=== PATIENT | male | born 1970 | race Caucasian/White ===

== ENCOUNTER 2019-03-16 10:42 | Emergency (ER) | payer SELFPAY ==
[~2019-03-16] VITALS: Ht 91.4 cm; Wt 40.8 kg
--- NOTE | 2019-03-16 10:42 | NUR ---
Patient BIBA BLS, transferred to bed 9. RN evaluating patient at bedside.
[2019-03-16 10:47] VITALS: BP 129/68
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
--- NOTE | 2019-03-16 11:00 | NUR ---
Patient being evaluated by physician at bedside.
[2019-03-16] MEDS ORDERED: NACL 0.9% 1,000 ML IV ONE (11:04)
[2019-03-16] MEDS ORDERED: MULTIVITAMIN-12 10 ML, THIAMINE 100 MG, MAGNESIUM SULFATE 50% 2,000 MG, FOLIC ACID 5 MG... IV ONE ×5 (11:04)
[2019-03-16] MEDS ORDERED: diphenhydrAMINE 50 MG/ML VIAL IVP ONE (11:05)
[2019-03-16] MEDS ORDERED: FAMOTIDINE 20 MG/2 ML VIAL IVP ONE (11:05)
[2019-03-16 11:55] LABS: APPEARANCE,URINE CLEAR (CLEAR); BILIRUBIN,URINE NEGATIVE (NEGATIVE); BLOOD, URINE NEGATIVE (NEGATIVE); COLOR,URINE YELLOW (YELLOW); LEUKOCYTE ESTERASE ,URINE NEGATIVE (NEGATIVE); NITRITE, URINE NEGATIVE (NEGATIVE); UGLUCOSE NEGATIVE (NEGATIVE)
[2019-03-16 12:02] LABS: BARBITURATE, URINE NEG. ng/ml (NEG <=200); BENZODIAZEPINE, URINE POS. ng/mL (NEG <=200); CANNABINOID, URINE NEG. ng/mL (NEG <=50); COCAINE, URINE NEG. ng/mL (NEG <=300); OPIATE, URINE NEG. ng/mL (NEG <=2000); PHENCYCLIDINE SCREEN,URINE NEG. ng/mL (NEG <=25)
[2019-03-16 12:02] LABS: ANION GAP 11.6 (8-16); CARBON DIOXIDE 28.4 mmol/L (21-32); CREATININE 0.8 mg/dL (0.7-1.3); EOSINOPHILS # (AUTO) 0.1 K/uL (0-0.4); EOSINOPHILS % (AUTO) 2.4 % (0.0-4.0); LYMPHOCYTES # (AUTO) 2.6 K/uL (2.0-11.5); NEUTROPHILS # (AUTO) 2.6 K/uL (1.8-7.7); NEUTROPHILS % (AUTO) 43.8 % (42.2-75.2)
[2019-03-16 12:07] LABS: ALBUMIN 3.4 g/dL (3.4-5.0); TOTAL BILIRUBIN 0.2 mg/dL (0.0-1.0)
[2019-03-16 12:09] LABS: BASOPHILS % (AUTO) 0.8 % (0.0-2.0); HEMATOCRIT 50.3 % (36-52); HEMOGLOBIN 16.9 g/dL (12.0-18.0); LYMPHOCYTES % (AUTO) 43.9 % (20.5-51.1); MEAN CORPUSCULAR HEMOGLOBIN 31 pg (27-31); MEAN CORPUSCULAR HGB CONC 34 g/dL (33-37); MEAN CORPUSCULAR VOLUME 93.2 fL (80-94); MONOCYTES # (AUTO) 0.5 K/uL (0.8-1.0); MONOCYTES % (AUTO) 9.1 % (1.7-9.3); PLATELET COUNT (AUTO) 328 K/uL (140-450); RED CELL DISTRIBUTION WIDTH 15.2 % (11.6-13.7)
--- NOTE | 2019-03-16 12:11 | NUR ---
X-RAY AT BEDSIDE.
--- NOTE | 2019-03-16 12:30 | NUR ---
Patient being reevaluated by dr anne at bedside.
--- NOTE | 2019-03-16 13:00 | NUR ---
PT ABLE TO GET INTO HIS WHEELCHAIR WITHOUT ASSISTANCE---NO TREMORS, SELF DRESSED PT HAD CLEANED UP ON OUR BATHROOM UPON ARRIVAL---
--- NOTE | 2019-03-16 13:04 | NUR ---
Patient discharged with v/s stable. Written and verbal after care instructions given and explained. Patient alert, oriented and verbalized understanding of instructions. Wheel Chair Assisted with steady gait. All questions addressed prior to discharge. ID band removed. Patient advised to follow up with PMD. Rx of ATARAX given. Patient educated on indication of medication including possible reaction and side effects. Opportunity to ask questions provided and answered. ---BUS PASS REQUESTED; HOUSE SUP NOTIFIED ---PROVIDED
[2019-03-16 13:08] VITALS: BP 116/78
== END 2019-03-16 13:04 | disposition home or self-care (01) ==
LOC: MED 10:42
DX: F10.229 Alcohol dependence with intoxication, unspecified (principal); R94.31 Abnormal electrocardiogram [ECG] [EKG]; Z89.612 Acquired absence of left leg above knee; Z89.611 Acquired absence of right leg above knee; Y90.7 Blood alcohol level of 200-239 mg/100 ml
CPT/HCPCS: 36415; 71045; 80053; 80305; 81003; 82550; 84484; 85025; 93005; 96365; 96375; 99284; A9153; G0482; J1200; J3411; J3475; J3490; J7030

== ENCOUNTER 2019-03-19 23:19 | Emergency (ER) | payer OTHER, MEDICAID ==
[~2019-03-19] VITALS: Ht 121.9 cm; Wt 54.4 kg
--- NOTE | 2019-03-19 23:19 | NUR ---
ASHWIN HUTCHINSON. TAKEN TO BED 1
[2019-03-19 23:29] VITALS: BP 139/97
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
--- NOTE | 2019-03-20 00:35 | NUR ---
PATEINT GOT IN WHEELCHAIR AND LWBS AT THIS TIME.
== END 2019-03-20 00:35 | disposition left against medical advice (07) ==
LOC: MED 23:19
DX: F10.129 Alcohol abuse with intoxication, unspecified (principal); Z53.21 Procedure and treatment not carried out due to patient leaving prior to being seen by health care provider